=== PATIENT | male | born 1965 | race African-American/Black ===

== ENCOUNTER 2017-12-12 06:19 | Emergency (ER) | payer BC ==
[2017-12-12 06:51] LABS: #Basophils 0.1 thou/uL (0.0-0.2); #Eosinphils 0.6 thou/uL (0.0-0.7); #Lymphocytes 2.8 thou/uL (1.20-3.40); #Monocytes 0.8 thou/uL (0.11-0.59); #Neutrophils 4.5 thou/uL (1.40-6.50); %Eosinophils 7.3 % (0.0-10.0); %Lymphocytes 31.2 % (21.0-51.0); %Monocytes 9.5 % (0.0-10.0); %Neutrophils 51.1 % (42.0-75.0); Hemoglobin 15.1 g/dL (14.0-18.0); Mean Corpuscular HGB CONC 33.6 g/dL (32.0-36.0); Mean Corpuscular Hemoglobin 32.9 pg (27.0-31.0); Mean Corpuscular Volume 97.8 fl (80.0-94.0); Mean Platelet Volume 7.8 fL (7.4-10.4); Platelet Count 346 thou/uL (130-400); RBC Distribution Width 12.4 % (11.5-14.5); White Blood Cell (WBC) Count 8.9 thou/uL (4.8-10.8)
[2017-12-12 07:03] LABS: ALT (SGPT) 19 U/L (8-55); AST (SGOT) 19 U/L (5-34); Albumin 4.3 g/dL (3.5-5.0); Alkaline Phosphatase 32 U/L (40-150); Anion Gap 10 mmol/L (10-20); BUN (Urea Nitrogen) 15 mg/dL (8.4-25.7); Calc. Creatinine Clearance 0 mL/min (70-130); Calcium 9.8 mg/dL (7.8-10.44); Carbon Dioxide 28 mmol/L (22-29); Chloride 100 mmol/L (98-107); Estimated GFR-MDRD 79; Globulin 2.8 g/dL (2.4-3.5); Glucose 111 mg/dL (70-105); Lipase 46 U/L (8-78); Potassium 3.4 mmol/L (3.5-5.1); Protein, Total 7.1 g/dL (6.0-8.3); Sodium 135 mmol/L (136-145)
[2017-12-12] MEDS ORDERED: ISOVUE-370 76%-LOCM 1 ML ONE (07:43)
[2017-12-12] MEDS ORDERED: Ondansetron PF 4 MG/2 ML Vial ONE (07:54)
--- NOTE | 2017-12-12 07:59 | RAD ---
AP VIEW OF THE CHEST: INDICATION: Emergency examination for epigastric pain. COMPARISON: Prior study dated 09/07/14. FINDINGS: There is mild left basilar scarring which is stable. No focal consolidation is evident. Cardiomedia stinal silhouette is within normal limits. No acute osseous abnormality is evident. IMPRESSION: No acute cardiopulmonary abnormality. POS: [facility]
[2017-12-12 08:46] LABS: Bilirubin Negative (Negative); Blood, Urine Negative (Negative); Clarity CLEAR (Clear); Glucose, Urine (Dipstick) Negative (Negative); Leukocyte Negative (Negative); Nitrite Negative (Negative); Protein, Urine (Dipstick) Negative (Neg-Trace)
--- NOTE | 2017-12-12 08:49 | CT ---
CT ABDOMEN AND PELVIS WITH IV CONTRAST: DATE: 12/12/17. HISTORY: Epigastric abdominal pain that started at 0300 hours. Loose stools starting yesterday. COMPARISON: 09/07/14. FINDINGS: There is atelectasis present at each lung base. There is a 1.6 cm low-density lesion within the medial aspect of the right hepatic lobe which demonst rates area of peripheral nodular enhancement. This lesion was also seen on prior study in 2007 and [facility] characteristics most compatible with a hemangioma. 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 The pancreas, bilateral adrenal glands, k idneys, and urinary bladder demonstrate a normal CT appearance. Minimal vascular calcifications are seen in the abdominal aorta. No dilated loops of small bowel are seen to suggest a small bowel obstr uction. There is a small amount of retained fecal material seen throughout the colon. The dilated l oops of small bowel seen on the prior study have resolved. There has been no other interval change f rom the prior exam. IMPRESSION: 1. No acute findings are seen in the abdomen or pelvis. There are no dilated loops of small bowel to suggest a small bowel obstruction. 2. Right hepatic lobe hemangioma. POS: [facility]
[2017-12-12 08:55] LABS: Specific Gravity, Urine 1.045 (1.002-1.036)
== END 2017-12-12 10:20 | disposition home or self-care (01) ==
LOC: ERS 06:19
DX: R10.13 Epigastric pain (principal); K21.9 Gastro-esophageal reflux disease without esophagitis; E78.5 Hyperlipidemia, unspecified
CPT/HCPCS: 36415; 71045; 74177; 80053; 81003; 83605; 83690; 85025; 96361; 96374; 96375; J2270; J2405